=== PATIENT | male | born 1940 | race Native Hawaiian/Other Pacific Islander ===

== ENCOUNTER 2023-03-29 21:48 | Emergency (ER) | payer OTHER ==
[~2023-03-29] VITALS: Ht 188 cm; Wt 125.2 kg
[~2023-03-29 21:48] MED LIST: HALO5INJ3 IM; METH4TAB6 PO
[2023-03-29 21:55] VITALS: TEMP 97.9
[2023-03-29 22:15] LABS: PLATELET COUNT 186 K/uL (142-355)
[2023-03-29 22:28] LABS: POTASSIUM 3.4 mmol/L (3.6-5.2)
[2023-03-30 00:35] VITALS: BP 140/82
[2023-03-30] MEDS ORDERED: CLOP75TA2 PO (09:27)
[2023-03-30] MEDS ORDERED: ESCI10TA PO (09:27)
[2023-03-30] MEDS ORDERED: FINA5TAB2 PO (09:28)
[2023-03-30] MEDS ORDERED: METH4TAB6 PO ×5 (09:31→09:50)
[2023-03-30] MEDS ORDERED: POLY GLYCOL3350 M1 PO (09:51)
[2023-03-30] MEDS ORDERED: SIMV40TA57 PO (09:51)
[2023-03-30] MEDS ORDERED: TAMS0.4C PO (09:52)
[2023-03-30] MEDS ORDERED: BETH25TA10 PO (09:53)
[2023-03-30] MEDS ORDERED: OLANZAPINE2.5 MG PO (09:53)
[2023-03-30] MEDS ORDERED: CARV6.25 PO (09:54)
[2023-03-30] MEDS ORDERED: KLOR-CON M2020 MEQ PO (09:55)
[2023-03-30] MEDS ORDERED: FURO40TA93 PO (09:55)
[2023-03-30] MEDS ORDERED: SENNOSIDES8.6 MG PO (09:56)
[2023-03-30] MEDS ORDERED: EPIPEN 2-P0.3 MG/0.3 IM (09:57)
[2023-03-30] MEDS ORDERED: LORA2INJ21 IM (09:59)
[2023-03-30] MEDS ORDERED: NITR0.4S2 SL (10:02)
[2023-04-12] MEDS ORDERED: COREG 6.25MG TAB PO (12:27)
[2023-04-12] MEDS ORDERED: CLOP75TA2 PO (12:27)
[2023-04-12] MEDS ORDERED: FINA5TAB2 PO (12:27)
[2023-04-12] MEDS ORDERED: FURO40TA93 PO (12:27)
[2023-04-12] MEDS ORDERED: ESCI10TA PO (12:27)
[2023-04-12] MEDS ORDERED: MIRALAX 17GM PAK PO (12:28)
[2023-04-12] MEDS ORDERED: POTA20TA4 PO (12:28)
[2023-04-12] MEDS ORDERED: SIMV40TA57 PO (12:28)
[2023-04-12] MEDS ORDERED: LORA2INJ21 IM (12:28)
[2023-04-12] MEDS ORDERED: OLANZAPINE5 MG PO (12:28)
[2023-04-12] MEDS ORDERED: TAMS0.4C PO (12:29)
== END 2023-03-30 00:35 | disposition other institution (70) ==
LOC: ED 21:48
PROVIDERS: Family Medicine
DX: F29 Unspecified psychosis not due to a substance or known physiological condition (principal); R45.1 Restlessness and agitation; Z02.79 Encounter for issue of other medical certificate
CPT/HCPCS: 36415; 80053; 85027; 87635; 93005; 99283; U0003